=== PATIENT | male | born 1980 ===

== ENCOUNTER 2022-04-13 16:26 | Outpatient (REF) | payer SELFPAY ==
[2022-04-13 21:34] LABS: ALT 55 U/L (16-63); AST 35 U/L (15-37)
[2022-04-16 09:31] LABS: HBs Antibody, Quant <3.1 mIU/mL (See Note); Hepatitis B Surface Ab Negative (See Note)
[2022-04-16 10:15] LABS: Hep B Core Antibody Negative (Negative)
[2022-04-16 10:29] LABS: Hepatitis C Ab w Rflx HCV PCR Negative (Negative)
[2022-04-16 11:33] LABS: Hepatitis B Surface Ag Negative (Negative)
== END 2022-04-13 16:27 | disposition home or self-care (01) ==
LOC: NCHCN 16:26
PROVIDERS: Visit Provider Registered Nurse
DX: F11.11 Opioid abuse, in remission (principal); Z11.59 Encounter for screening for other viral diseases
CPT/HCPCS: 86704; 86706; 86803; 87340; 84450; 84460

== ENCOUNTER 2022-05-02 17:58 | Outpatient (REF) | payer SELFPAY ==
[2022-05-03 10:31] LABS: HIV-1/2 Ag & Ab Screen Negative (Negative)
[2022-05-03 10:36] LABS: Hep A Total Ab w Rflx IgM Negative (Negative)
== END 2022-05-02 17:59 | disposition home or self-care (01) ==
LOC: NCHCN 17:58
PROVIDERS: Visit Provider Registered Nurse
DX: Z00.00 Encounter for general adult medical examination without abnormal findings (principal); Z11.4 Encounter for screening for human immunodeficiency virus [HIV]; Z11.59 Encounter for screening for other viral diseases; Z01.84 Encounter for antibody response examination
CPT/HCPCS: 86709; 87389

== ENCOUNTER 2023-01-10 14:54 | Outpatient (REF) | payer MEDICAID, SELFPAY ==
[2023-01-10 22:07] LABS: Anion Gap 7.1 mmol/L (3-11); BUN 24 mg/dL (7-18); CO2 28.9 mmol/L (21.0-32.0); Calcium 9.6 mg/dL (8.5-10.1); Calculated LDL 100 mg/dL (<100); Chloride 102 mmol/L (98-107); Cholesterol 207 mg/dL (<200); Estimated GFR 95.18 (mL/min/1.73m2); Glucose 181 mg/dL (74-106); HDL Cholesterol 93 mg/dL (40-60); Potassium 4.1 mmol/L (3.5-5.1); Sodium 138 mmol/L (136-145); Triglyceride 70 mg/dL (<150)
[2023-01-13 15:20] LABS: HIV-1/2 Ag & Ab Screen Negative (Negative)
[2023-01-14 12:21] LABS: Hepatitis C Ab w Rflx HCV PCR Negative (Negative)
== END 2023-01-10 14:55 | disposition home or self-care (01) ==
LOC: NCHCN 14:54
PROVIDERS: Visit Provider Registered Nurse
DX: F11.21 Opioid dependence, in remission (principal); Z13.220 Encounter for screening for lipoid disorders; Z11.4 Encounter for screening for human immunodeficiency virus [HIV]; Z11.59 Encounter for screening for other viral diseases
CPT/HCPCS: 80048; 80061; 86803; 87389

== ENCOUNTER 2024-04-07 14:16 | Outpatient (REF) | payer MEDICAID, SELFPAY ==
[2024-04-07 14:38] LABS: HCT 42.9 % (40.0-50.0); HGB 14.3 g/dL (13.5-17.5); MCH 32.2 pg (27.0-33.0); MCHC 33.3 % (32.0-36.0); MCV 97 fL (80-95); MPV 11.7 fL (8.0-11.0); Platelet Count 165 10^3/uL (130-400); RBC 4.44 10^6/uL (4.36-5.78); RDW 12.5 % (11.8-14.1); RDW-SD 44.2 fL; WBC 4.07 10^3/uL (4.4-10.8)
[2024-04-07 15:04] LABS: Anion Gap 3.5 mmol/L (3-11); BUN 30 mg/dL (7-18); CO2 34.5 mmol/L (21.0-32.0); CREATININE 0.8 mg/dL (0.70-1.30); Chloride 105 mmol/L (98-107); Estimated GFR 111.22 (mL/min/1.73m2); Glucose 100 mg/dL (74-106); Potassium 4.2 mmol/L (3.5-5.1); Sodium 143 mmol/L (136-145); TSH (W/Ref FT4) 2.31 uIU/mL (0.36-3.74)
== END 2024-04-07 14:17 | disposition home or self-care (01) ==
LOC: NCHCN 14:16
PROVIDERS: Visit Provider Family Medicine
DX: G47.39 Other sleep apnea (principal); R79.89 Other specified abnormal findings of blood chemistry
CPT/HCPCS: 80048; 85027; 84443